=== PATIENT | male | born 1990 | race Caucasian/White ===

== ENCOUNTER 2020-01-15 20:53 | Emergency (ER) | payer OTHER ==
[~2020-01-15] VITALS: Ht 167.6 cm; Wt 95.3 kg
== END 2020-01-15 22:25 | disposition home or self-care (01) ==
LOC: ER 20:53
DX: S93.492A Sprain of other ligament of left ankle, initial encounter (principal); M12.862 Other specific arthropathies, not elsewhere classified, left knee; S70.02XA Contusion of left hip, initial encounter; X58.XXXA Exposure to other specified factors, initial encounter; Y93.89 Activity, other specified; Y92.89 Other specified places as the place of occurrence of the external cause; Y99.8 Other external cause status

== ENCOUNTER 2024-08-19 11:15 | Outpatient (CLI) | payer OTHER | END 2024-08-19 11:30 | disposition home or self-care (01) | LOC: MRI 11:15 | PROVIDERS: ATTEND Orthopaedic Surgery | DX: M25.562 Pain in left knee (principal); M25.561 Pain in right knee | CPT/HCPCS: 73721 ==